=== PATIENT | male | born 1960 | race Hispanic/Latino ===

== ENCOUNTER 2020-12-10 12:30 | Outpatient (CLI) | payer BC ==
[~2020-12-10 12:30] MED LIST: Iopamidol-370 76% 500 ML 1 ML ONE
== END 2020-12-10 12:31 | disposition home or self-care (01) ==
LOC: BICCT 12:30
PROVIDERS: ATTEND Urology
DX: R31.29 Other microscopic hematuria (principal); N50.0 Atrophy of testis; Z87.442 Personal history of urinary calculi; N21.0 Calculus in bladder; N20.0 Calculus of kidney; N28.1 Cyst of kidney, acquired; K57.30 Diverticulosis of large intestine without perforation or abscess without bleeding; N44.2 Benign cyst of testis; N50.3 Cyst of epididymis
CPT/HCPCS: 74178; 76870; 81001; 87086; 93976